=== PATIENT | female | born 1985 | race African-American/Black ===

== ENCOUNTER 2022-01-25 15:55 | Emergency (ER) | payer MEDICAID ==
[~2022-01-25] VITALS: Ht 170.2 cm; Wt 59.0 kg
[2022-01-25 16:22] VITALS: BP 131/79
== END 2022-01-25 20:06 | disposition left against medical advice (07) ==
LOC: ER 15:55
DX: Z53.21 Procedure and treatment not carried out due to patient leaving prior to being seen by health care provider (principal)